=== PATIENT | female | born 1950 | race Caucasian/White ===

== ENCOUNTER 2017-07-27 16:18 | Emergency (ER) | payer MEDICARE ==
[2017-07-27 16:37] VITALS: BP 126/71
--- NOTE | 2017-07-27 16:38 | UC ---
Complaint Female HPI - HPI Summary HPI Summary: 67 YEAR OLD FEMALE PRESENTS WITH COMPLAINS OF URINARY FREQUENCY, URGENCY AND BURNING. - History Of Current Complaint Chief Complaint: UCGU Stated Complaint: UTI Time Seen by Provider: 07/27/17 16:38 Hx Obtained From: Patient Onset/Duration: Sudden Onset Timing: Constant Severity Initially: Moderate Severity Currently: Moderate Pain Scale Used: 0-10 Numeric - 5 Character: Sharp, Burning Aggravating Factor(s): Movement, Urination Associated Signs And Symptoms: Positive: Negative - Allergies/Home Medications Allergies/Adverse Reactions: Allergies Allergy/AdvReac Type Severity Reaction Status Date / Time Erythromycin Allergy Vomiting Verified 07/27/17 16:31 Sulfa Antibiotics Allergy Hives Verified 07/27/17 16:31 PMH/Surg Hx/FS Hx/Imm Hx Previously Healthy: Yes - Surgical History Surgical History: None - Family History Known Family History: Positive: Hypertension - Social History Alcohol Use: Occasionally Substance Use Type: None Smoking Status (MU): Never Smoked Tobacco Review of Systems Constitutional: Negative Skin: Negative Eyes: Negative ENT: Negative Respiratory: Negative Cardiovascular: Negative Gastrointestinal: Negative Genitourinary: Dysuria, Frequency, Urgency Motor: Negative Neurovascular: Negative Musculoskeletal: Negative Neurological: Negative Psychological: Negative All Other Systems Reviewed And Are Negative: Yes Physical Exam Triage Information Reviewed: Yes Vital Signs: Initial Vital Signs Temp 36.5 C 07/27/17 16:32 Pulse 75 07/27/17 16:32 Resp 15 07/27/17 16:32 BP 126/71 07/27/17 16:32 Pulse Ox 100 07/27/17 16:32 Eye Exam: Normal ENT Exam: Normal Dental Exam: Normal Neck exam: Normal Neck: Positive: 1 Respiratory Exam: Normal Cardiovascular Exam: Normal Abdominal Exam: Normal Musculoskeletal Exam: Normal Neurological Exam: Normal Psychological Exam: Normal Skin Exam: Normal Complaint Female Dx - Differential Dx/Diagnosis Provider Diagnoses: URINARY FREQUENCY/BURNING Discharge - Discharge Plan Condition: Stable Disposition: HOME Prescriptions: Nitrofurantoin Monohyd Macro [Macrobid] 100 mg PO BID #14 cap Phenazopyridine 200 mg (NF) [Pyridium 200 MG tab *] 200 mg PO TID #9 tab Patient Education Materials: Urinary Tract Infection in Women (ED) Referrals: Anni Garcia MD [Primary Care Provider] -
== END 2017-07-27 17:01 | disposition home or self-care (01) ==
LOC: UCEAST 16:18
DX: R35.0 Frequency of micturition (principal); R30.0 Dysuria; Z88.1 Allergy status to other antibiotic agents
CPT/HCPCS: 81003; 87077; 87086; 87186; 99212; G0463

== ENCOUNTER 2017-08-06 13:31 | Emergency (ER) | payer MEDICARE ==
[2017-08-06 13:39] VITALS: BP 116/71
--- NOTE | 2017-08-06 14:08 | UC ---
Lower Extremity/Ankle HPI - History of Current Complaint Chief Complaint: UCLowerExtremity Stated Complaint: FOOT INJURY Time Seen by Provider: 08/06/17 13:43 Hx Obtained From: Patient Onset/Duration: Sudden Onset - pt twisted L foot over while walking and now has L lateral foot pain and swelling Severity Initially: Severe Severity Currently: Moderate Aggravating Factor(s): Standing, Ambulation Alleviating Factor(s): Rest, Elevation, Ice Able to Bear Weight: No - Allergies/Home Medications Allergies/Adverse Reactions: Allergies Allergy/AdvReac Type Severity Reaction Status Date / Time Erythromycin Allergy Vomiting Verified 08/06/17 13:38 Sulfa Antibiotics Allergy Hives Verified 08/06/17 13:38 Home Medications: Home Medications Ibuprofen [Advil] 2 tab PO Q8HR PRN 08/06/17 [History Confirmed 08/06/17] PMH/Surg Hx/FS Hx/Imm Hx Previously Healthy: Yes - Surgical History Surgical History: None - Family History Known Family History: Positive: Hypertension - Social History Occupation: Retired Lives: With Family Alcohol Use: Occasionally Alcohol Amount: 1 glass of wine per day Substance Use Type: None Smoking Status (MU): Never Smoked Tobacco Review of Systems Constitutional: Negative Skin: Negative Respiratory: Negative Cardiovascular: Negative Musculoskeletal: Other: - L foot pain Neurological: Negative Psychological: Negative All Other Systems Reviewed And Are Negative: Yes Physical Exam Triage Information Reviewed: Yes Appearance: Well-Appearing, No Pain Distress, Well-Nourished Vital Signs: Initial Vital Signs Temp 97.7 F 08/06/17 13:34 Pulse 72 08/06/17 13:34 Resp 18 08/06/17 13:34 BP 116/71 08/06/17 13:34 Pulse Ox 100 08/06/17 13:34 Vital Signs Reviewed: Yes Respiratory Exam: Normal Cardiovascular Exam: Normal Cardiovascular: Positive: RRR, Brisk Capillary Refill Musculoskeletal: Positive: Other: - swelling and point tenderness L lat foot. no knee or hip pain Neurological Exam: Normal Psychological Exam: Normal Skin Exam: Normal Lower Extremity Course/Dx - Differential Dx/Diagnosis Differential Diagnosis/HQI/PQRI: Contusion, Fracture (Closed), Sprain, Strain Provider Diagnoses: fractured L fifth metatarsal Discharge - Discharge Plan Condition: Stable Disposition: HOME Patient Education Materials: Foot Fracture in Adults (ED), Crutch Instructions (ED) Referrals: Anni Garcia MD [Primary Care Provider] - Kim Jo MD [Medical Doctor] - 2 Days (Call Tuesday for appointment with ortho) Additional Instructions: Ice and elevate foot. Wear CAM boot until you follow-up with orthopedics Use crutches Ibuprofen 600-800mg every 6 hours as needed for pain
--- NOTE | 2017-08-06 14:18 | RAD ---
Indication: LEFT foot pain post fall. Comparison: No relevant prior exams available on the [facility] for comparison. Technique: AP, lateral, and oblique views LEFT foot. Report: Bone density appears decreased corresponding with osteopenia on March 23, 2016 DEXA scan. Nondisplaced transverse fracture at the base of the fifth metatarsal most conspicuously lateral views centered 1.4 cm distal to the proximal margin of the tuberosity. Negative for additional fracture. Normal articular alignment. Unremarkable soft tissue contours. IMPRESSION: Nondisplaced transverse fracture at the proximal metaphysis of the fifth metatarsal.
== END 2017-08-06 14:20 | disposition home or self-care (01) ==
LOC: UCEAST 13:31
DX: S92.352A Displaced fracture of fifth metatarsal bone, left foot, initial encounter for closed fracture (principal); Z88.2 Allergy status to sulfonamides; X50.1XXA Overexertion from prolonged static or awkward postures, initial encounter; Y92.9 Unspecified place or not applicable
CPT/HCPCS: 99213; G0463

== ENCOUNTER 2017-08-17 09:23 | Day surgery (SDC) | payer MEDICARE ==
[~2017-08-17 09:23] MED LIST: Buffered Lidocaine 0.9% SYRIN* 5 ML/SYR SYRINGE INTRADERM ONE; Ibuprofen TAB* 600 MG PO ONE; Sodium Citrate/Citric Acid* 15 ML UDC PO ONE
[2017-08-17] MEDS ORDERED: Sodium Citrate/Citric Acid* 15 ML UDC ONE (09:37)
[2017-08-17] MEDS ORDERED: ceFAZolin 2 GM PREMIX (*) 50 ML IVPB ONE (09:37)
[2017-08-17] MEDS ORDERED: Buffered Lidocaine 0.9% SYRIN* 5 ML/SYR SYRINGE ONE (09:37)
[2017-08-17] MEDS ORDERED: Ibuprofen TAB* 600 MG ONE (09:37)
[2017-08-17] MEDS ORDERED: Midazolam* 1 MG/ML 2 ML VIAL (2 MG) ONE ×2 (12:49→13:56)
[2017-08-17] MEDS ORDERED: fentaNYL* 50 MCG/ML 2 ML VIAL (100 MCG VIAL) ONE ×2 (12:49→13:55)
[2017-08-17] MEDS ORDERED: Chloroprocaine 2%* 20 ML VIAL ONE (12:49)
[2017-08-17] MEDS ORDERED: Ketorolac INJ* 30 MG/ML 1 ML VIAL ONE (13:10)
[2017-08-17] MEDS ORDERED: oxyCODONE/Acetamin 5/325 MG* TAB PO PRN (13:15)
[2017-08-17] MEDS ORDERED: Ondansetron INJ* 2 MG/ML VIAL IV PRN (13:15)
[2017-08-17] MEDS ORDERED: DiMENhydriNATE IV* 50 MG/ML VIAL IV PUSH PRN (13:15)
[2017-08-17] MEDS ORDERED: fentaNYL* 50 MCG/ML 2 ML VIAL (100 MCG VIAL) IV PRN (13:15)
[2017-08-17] MEDS ORDERED: Lidocaine 1.5% EPI 1:200,000* 30 ML SDV ONE (14:00)
[2017-08-17] MEDS ORDERED: Ondansetron INJ* 2 MG/ML VIAL ONE (14:59)
[2017-08-17 16:30] VITALS: BP 123/66
--- NOTE | 2017-08-17 17:26 | RAD ---
CPT II Codes: 6045F INDICATION: Nondisplaced left fifth metatarsal fracture TECHNIQUE: Intraoperative fluoroscopy was provided during ORIF of left fifth metatarsal fracture. FINDINGS: 6 spot films depict intramedullary screw fixation across the patient's nondisplaced proximal left fifth metatarsal fracture. Fluoroscopy time: 228.5 seconds IMPRESSION: As above.
--- NOTE | 2017-08-18 06:19 | OP ---
DATE OF OPERATION: 08/17/17 [facility] DATE OF : 54 SURGEON: Rickey Gauthier MD. ACCOUNTING METHODS ANALYST: MAXWELL Ladd. Positioning and leg manipulation provided by physician integration assistant, required through the entire length of the procedure. ANESTHESIOLOGIST: Tevin Espinoza MD. ANESTHESIA: Spinal anesthesia, local anesthesia, 5 mL of 1.5% lidocaine with epinephrine. PRE-OP DIAGNOSIS: Left 5th metatarsal fracture, base, nondisplaced. POST-OP DIAGNOSIS: Left 5th metatarsal fracture, base, nondisplaced. OPERATIVE PROCEDURE: Open reduction and internal fixation, left 5th metatarsal fracture, base. ANTIBIOTICS: Ancef 2 g IV. IV FLUIDS: 1800 cc crystalloid. TOURNIQUET TIME: 46 minutes at 300 mmHg. COMPLICATIONS: None. ESTIMATED BLOOD LOSS: Minimal. SPECIMENS: None. IMPLANTS: Arthrex noncannulated, partially threaded 5.5 mm screw, length 40 mm , from the Haji fracture set. INDICATIONS FOR PROCEDURE: The patient is a 67-year-old woman, who injured herself on 08/06/17, while walking in clogs on the street. She suddenly inverted her left foot and ankle walking over some rocks. She went to [facility] where the diagnosis was made by radiograph and the patient followed up with me in clinic. The patient and I discussed at length the management of Haji type 2 metatarsal base fractures. We discussed the benefits, risks, and potential complications of both nonoperative and operative treatment. Ultimately, the patient decided she preferred operative treatment because of its lower rate of nonunion and faster rate of average healing. I discussed risk and potential complications of surgery, including bleeding, infection, nerve or blood vessel injury, blood clots, hardware problem, nonunion , foot pain. DESCRIPTION OF PROCEDURE: Preoperative written consent was signed. Operative extremity was marked in the preoperative holding. The short leg cast had been placed in clinic, was removed after having been bivalved. The patient's skin about the lateral foot was intact, although there was some soft tissue swelling and bruising. No skin compromise whatsoever. The patient was taken back to the operating room where Dr. Espinoza performed a spinal anesthetic. The patient was positioned supine on the table. A blanket bump was placed under the left hemipelvis. A tourniquet was placed on the left proximal thigh, but not yet inflated. The left foot and ankle were prepped with chlorhexidine. Then, the left lower extremity was prepped with ChloraPrep. The left lower extremity was draped. Time-out was performed, surgical. I brought in the mini C-arm and marked on the skin the level, proximal to distal , of the proximal most end of the 5th metatarsal. I next delineated by palpation the medial and lateral borders of the metatarsal. I marked the skin 2.3 cm proximal to the proximal tip of the 5th metatarsal. I applied an Esmarch and elevated the tourniquet to 300 mmHg. I made an approximately 1 cm longitudinal incision at that skin marking, 2.3 cm proximal to the base of the 5th metatarsal. I then spread down to bone with a hemostat. No nerve branches were encountered. I then used a pin from the Arthrex Haji fracture set. I placed a pin down the medullary canal of the 5th metatarsal. I liked my placement on the second pass of the pin. It entered the bone in appropriate location and was nicely centralized in the medullary canal. I took operative photos with a mini C-arm and saved them. Next, I placed a tissue protector over the pin. I drilled with a 3.5 mm drill, on hand power. No resistance was encountered of significance. I next used a 4.5 mm tap by hand. No significant resistance was encountered. I took multiple images with this tap in place. While it looked like it filled up most of the canal width, especially in the AP images, it looked as though there was some space, especially on the lateral view images, and I wanted to get better purchase on the underside of the cortex. Certainly, the patient's bone appeared osteopenic and I worried about fracturing the bone, so I took multiple images with the tap overlying the skin to determine if a 5.5 mm tap would enter into bone. Ultimately, I decided to use the 5.5 mm tap. I next the tapped the bone by hand with a 5.5 mm tap, significant resistance was not encountered and there was room in the intramedullary canal for this tap. This legitimized my thinking. I placed several screw lengths up against the bone, outside the body, to pick a screw length and ultimately decided on a 40 mm screw. We removed other instruments and then placed my 40 mm long, 5.5 mm diameter screw, partially threaded. A nice resistance was encountered. I counter sunk the head slightly so that it would not interfere with the joint between the cuboid and the 5th metatarsal. Final images were taken. Irrigation of wound. I placed 2 stitches with nylon 4.0 suture in the skin of the incision site. Tourniquet was dropped. Xeroform, 4x4s, sterile Webril. Posterior splint followed by sugar tong were placed and wrapped with an Gabe bandage. After closure of the skin and before Xeroform placement, a local anesthetic, approximately 5 mL of lidocaine 1.5% with epinephrine was placed. The patient was transferred back to the PACU. The patient will receive Percocet for pain control postoperatively. Aspirin 81 mg p.o. b.i.d. x2 weeks for DVT prophylaxis and Keflex x5 days for infection prophylaxis. I chose aspirin 81 rather than 325 because she states that she has had some gastric upset with full strength aspirin in the past. I will see the patient at 10 to 14 days postoperative in clinic where I will remove the splint, do a wound check , and get x- rays. At that time, I will place the patient in a boot or a cast. [id number]/CPS #: [id number] MTDAlex
== END 2017-08-17 16:35 | disposition home or self-care (01) ==
LOC: OR 09:23
PROVIDERS: ATTEND Orthopaedic Surgery
DX: S92.355A Nondisplaced fracture of fifth metatarsal bone, left foot, initial encounter for closed fracture (principal); X50.0XXA Overexertion from strenuous movement or load, initial encounter; Y92.410 Unspecified street and highway as the place of occurrence of the external cause
CPT/HCPCS: A9270-GY; C1713; J0690; J1885; J2250; J2400; J2405; J3010

== ENCOUNTER 2017-09-26 07:47 | Emergency (ER) | payer MEDICARE ==
[2017-09-26 07:56] VITALS: BP 126/87
[2017-09-26] MEDS ORDERED: Phenazopyridine TAB* 100 MG PO ONE (08:47)
--- NOTE | 2017-09-26 08:52 | UC ---
Emerita Velasco Thomas, scribed for Saundra Elizalde MD on 09/26/17 at 0839 . Complaint Female HPI - HPI Summary HPI Summary: The pt is a 67 y/o F presenting to Urgent Care c/o dysuria, urinary frequency, and urinary urgency that began last night but worsened this morning. The pain is described as pressure. The pain is rated 6/10. The pain is aggravated by voiding and is alleviated by nothing. The patient has treated the pain with nothing STEEL UNLOADER. Pt denies fevers, chills, N/V, back pain, abd pain, and hematuria. Patient notes two prior UTIs earlier this year. Her last UTI was two months ago. Prior documentation reviewed from her visit to [facility] two months ago. Patients medication reviewed this visit. - History Of Current Complaint Chief Complaint: UCGU Stated Complaint: BURNING URINATION Time Seen by Provider: 09/26/17 08:23 Hx Obtained From: Patient, Medical Records - review of recent culture and sensitivity Onset/Duration: Lasting Days - 1, Still Present, Worse Since - this morning Timing: Constant Severity Currently: Moderate Pain Intensity: 6 Pain Scale Used: 0-10 Numeric Aggravating Factor(s): Urination Alleviating Factor(s): Nothing Associated Signs And Symptoms: Negative: Fever, Back Pain, Nausea, Vomiting(# Of Episodes =) Related Hx: Similar Episode/Dx as: - two prior UTI's this year - Allergies/Home Medications Allergies/Adverse Reactions: Allergies Allergy/AdvReac Type Severity Reaction Status Date / Time Erythromycin Allergy Severe Vomiting Verified 09/26/17 07:56 Fish Allergy Allergy Severe Diarrhea Verified 09/26/17 07:56 Sulfa Antibiotics Allergy Severe Hives Verified 09/26/17 07:56 Lactose Intolerance (GI) Allergy Intermediate Diarrhea Verified 09/26/17 07:56 Home Medications: Home Medications Cetirizine HCl [Zyrtec Allergy 10 MG TAB] 1 tab PO DAILY 09/26/17 [History Confirmed 09/26/17] PMH/Surg Hx/FS Hx/Imm Hx Previously Healthy: No - UTI's; NEGATIVE: HTN, DM - Surgical History Surgical History: Yes Surgery Procedure, Year, and Place: Leflt foot fracture - Family History Known Family History: Positive: Hypertension - Social History Occupation: Retired Lives: With Family Alcohol Use: Occasionally Alcohol Amount: 1 glass of wine per day Substance Use Type: None Smoking Status (MU): Never Smoked Tobacco - Immunization History Most Recent Influenza Vaccination: 07/31 Review of Systems Constitutional: Other - NEGATIVE: fever Genitourinary: Dysuria, Frequency, Urgency, Vaginal/Penile Discharge Is Patient Immunocompromised?: No All Other Systems Reviewed And Are Negative: Yes Physical Exam Triage Information Reviewed: Yes Appearance: Well-Appearing, No Pain Distress, Well-Nourished Vital Signs: Initial Vital Signs Temp 98.4 F 09/26/17 07:53 Pulse 80 09/26/17 07:53 Resp 16 09/26/17 07:53 BP 126/87 09/26/17 07:53 Pulse Ox 99 09/26/17 07:53 Vital Signs Reviewed: Yes Eye Exam: Normal ENT: Positive: Hearing grossly normal, Pharynx normal Neck exam: Normal Neck: Positive: Supple, Nontender, No Lymphadenopathy Respiratory Exam: Normal Respiratory: Positive: Chest non-tender, Lungs clear, Normal breath sounds, No respiratory distress, No accessory muscle use Cardiovascular Exam: Normal Cardiovascular: Positive: RRR, No Murmur, Pulses Normal Abdominal Exam: Normal Abdomen Description: Positive: Nontender, No Organomegaly, Soft. Negative: CVA Tenderness (R), CVA Tenderness (L), Guarding Musculoskeletal Exam: Normal Neurological Exam: Normal Psychological Exam: Normal Skin Exam: Normal Complaint Female Dx - Course Course Of Treatment: The pt is a 67 y/o female complaining of dysuria, urinary frequency, and urinary urgency that began last night but worsened this morning. Macrobid. pyridium. hydrate. uc - Differential Dx/Diagnosis Provider Diagnoses: UTI Discharge - Discharge Plan Condition: Stable Disposition: HOME Prescriptions: Nitrofurantoin Monohyd Macro [Macrobid] 100 mg PO BID #14 cap Phenazopyridine 200 mg (NF) [Pyridium 200 MG tab *] 200 mg PO TID PRN #6 tab PRN Reason: dysuria Patient Education Materials: Urinary Tract Infection in Women (ED) Referrals: Anni Garcia MD [Primary Care Provider] - Additional Instructions: - stay well hydrated. Drink plenty of non-alcoholic, non-caffinated beverages - Take antibiotic as prescribed until gone. - your urine has been sent for additional testing. If you need a different antibiotic - you will receive a call from a member of your care team - Take pyridium as prescribed for discomfort. This will make your urine blaze orange - this is normal - Okay to alternate ibuprofen (Advil, motrin) and tylenol every 3 hours for pain. Take with food Call your doctor or return with questions or concerns The documentation as recorded by the Emerita oliveira Thomas accurately reflects the service I personally performed and the decisions made by me, Saundra Elizalde MD.
== END 2017-09-26 09:00 | disposition home or self-care (01) ==
LOC: UCEAST 07:47
DX: N39.0 Urinary tract infection, site not specified (principal); Z88.1 Allergy status to other antibiotic agents; Z88.2 Allergy status to sulfonamides
CPT/HCPCS: 81003; 87077; 87086; 87186; 99212; A9270-GY; G0463

== ENCOUNTER 2019-08-05 17:25 | Emergency (ER) | payer MEDICARE ==
[2019-08-05] MEDS ORDERED: Ondansetron ODT TAB* 4 MG PO ONE (17:30)
--- NOTE | 2019-08-05 17:32 | UC ---
Abdominal Pain Female HPI - HPI Summary HPI Summary: 6 hours of worsening abdomen pain, nausea/vomiting belching no diarrhea-- history of ibs and has never had pain like this before - History of Current Complaint Chief Complaint: UCAbdominalPain Stated Complaint: VOMITING, CRAMPS Time Seen by Provider: 08/05/19 17:29 Hx Obtained From: Patient ?: No Onset/Duration: Sudden Onset, Lasting Hours - 6 Timing: Constant Severity Initially: Moderate Severity Currently: Severe Location: Diffuse Radiates: No Character: Colicy, Cramping Aggravating Factor(s): Movement Alleviating Factor(s): Nothing Associated Signs and Symptoms: Positive: Decreased Appetite, Nausea, Vomiting Allergies/Adverse Reactions: Allergies Allergy/AdvReac Type Severity Reaction Status Date / Time MS Erythromycin Allergy Severe Vomiting Verified 09/26/17 07:56 [Erythromycin] MS Fish Allergy Allergy Severe Diarrhea Verified 09/26/17 07:56 [Fish Allergy] MS Sulfa Antibiotics Allergy Severe Hives Verified 09/26/17 07:56 [Sulfa Antibiotics] MS Lactose Intolerance (GI) Allergy Intermediate Diarrhea Verified 09/26/17 07: 56 [Lactose Intolerance (GI)] PMH/Surg Hx/FS Hx/Imm Hx Previously Healthy: Yes - Surgical History Surgical History: Yes Surgery Procedure, Year, and Place: Leflt foot fracture - Family History Known Family History: Positive: Hypertension - Social History Occupation: Retired Lives: With Family Alcohol Use: Occasionally Alcohol Amount: 1 glass of wine per day Substance Use Type: None Smoking Status (MU): Never Smoked Tobacco - Immunization History Most Recent Influenza Vaccination: 07/31 Review of Systems All Other Systems Reviewed And Are Negative: Yes Constitutional: Positive: Negative Skin: Positive: Negative Eyes: Positive: Negative ENT: Positive: Negative Respiratory: Positive: Negative Cardiovascular: Positive: Negative Gastrointestinal: Positive: Abdominal Pain, Vomiting, Nausea Genitourinary: Positive: Negative Motor: Positive: Negative Neurovascular: Positive: Negative Musculoskeletal: Positive: Negative Neurological: Positive: Negative Psychological: Positive: Negative Is Patient Immunocompromised?: No Physical Exam Triage Information Reviewed: Yes Appearance: Well-Nourished, Ill-Appearing, Pain Distress Vital Signs Reviewed: Yes Eye Exam: Normal Eyes: Positive: Conjunctiva Clear ENT Exam: Normal ENT: Positive: Normal ENT inspection, Hearing grossly normal, Pharynx normal. Negative: Trismus, Muffled voice, Hoarse voice Dental Exam: Normal Neck exam: Normal Neck: Positive: Supple, Nontender Respiratory Exam: Normal Respiratory: Positive: Chest non-tender, Lungs clear, Normal breath sounds, No respiratory distress, No accessory muscle use Cardiovascular Exam: Normal Cardiovascular: Positive: RRR, No Murmur, Pulses Normal, Brisk Capillary Refill Abdominal Exam: Other Abdomen Description: Positive: Distended, Guarding. Negative: CVA Tenderness (R ), CVA Tenderness (L), McBurney's Point Tenderness Bowel Sounds: Positive: Present Musculoskeletal Exam: Normal Musculoskeletal: Positive: Strength Intact, ROM Intact Neurological Exam: Normal Neurological: Positive: Alert, Muscle Tone Normal Psychological Exam: Normal Skin Exam: Normal Abd Pain Female Course/Dx - Course Course Of Treatment: npo zofran given, refused [place] [facility] [place] [place] - Differential Dx/Diagnosis Provider Diagnosis: Pain in the abdomen Discharge ED - Sign-Out/Discharge Documenting (check all that apply): Patient Departure All imaging exams completed and their final reports reviewed: No Studies - Discharge Plan Condition: Stable Disposition: HOME-RECOMMEND TO ED Patient Education Materials: Acute Abdominal Pain (ED) Referrals: Anni Garcia MD [Primary Care Provider] - Additional Instructions: please go directly to emergency department for further care-nothing to eat or drink - Billing Disposition and Condition Condition: STABLE Disposition: Home-Recommend to ED
[2019-08-05 17:36] VITALS: BP 140/72
== END 2019-08-05 17:51 | disposition home health service (06) ==
LOC: UCEAST 17:25
DX: R10.9 Unspecified abdominal pain (principal); Z88.2 Allergy status to sulfonamides
CPT/HCPCS: 99212; A9270-GY; G0463

== ENCOUNTER 2019-08-05 17:59 | Emergency (ER) | payer MEDICARE ==
[2019-08-05] MEDS ORDERED: Morphine INJ* 2 MG/ML 1 ML SYRINGE (TWO MG - NEW SYRINGE VERSION) IV ONE (19:11)
[2019-08-05] MEDS ORDERED: NS 0.9% 1000 ML** 1,000 ML IV ONE (19:11)
--- NOTE | 2019-08-05 19:36 | ED ---
GI/ HPI - HPI Summary HPI Summary: 69-year-old female presents with abdominal pain for the past day. She states she's been having nausea and vomiting. No diarrhea. Had normal bowel movement today. She had no previous belly surgery. States it felt like gas pain but is more intense. States her symptoms have getting any better and then worse. She denies taking anything for pain. She was seen in urgent care and given nausea medications and the nausea improved. Denies any chest pressure or shortness of breath. No fevers. No urinary symptoms. Never had this pain before. Denies anything different. - History of Current Complaint Chief Complaint: EDAbdPain Time Seen by Provider: 08/05/19 19:02 Stated Complaint: ABD PAIN PER Hx Last Menstrual Period: post Pain Intensity: 7 - Allergy/Home Medications Allergies/Adverse Reactions: Allergies Allergy/AdvReac Type Severity Reaction Status Date / Time MS Erythromycin Allergy Severe Vomiting Verified 08/05/19 19:15 [Erythromycin] MS Fish Allergy Allergy Severe Diarrhea Verified 08/05/19 19:15 [Fish Allergy] MS Sulfa Antibiotics Allergy Severe Hives Verified 08/05/19 19:15 [Sulfa Antibiotics] MS Lactose Intolerance (GI) Allergy Intermediate Diarrhea Verified 08/05/19 19: 15 [Lactose Intolerance (GI)] PMH/Surg Hx/FS Hx/Imm Hx Endocrine/Hematology History: Denies: Hx Diabetes, Hx Thyroid Disease Cardiovascular History: Denies: Hx Hypertension Respiratory History: Denies: Hx Asthma, Hx Chronic Obstructive Pulmonary Disease (COPD) GI History: Reports: Hx Irritable Bowel - diarrhea Denies: Hx Ulcer History: Reports: Hx Renal Disease - abnormal gfr Musculoskeletal History: Reports: Hx Tendonitis - right ring finger Sensory History: Reports: Hx Contacts or Glasses - reading Denies: Hx Cataracts, Hx Hearing Aid Opthamlomology History: Reports: Hx Contacts or Glasses - reading Denies: Hx Cataracts Neurological History: Reports: Hx Migraine - Cancer History Hx Chemotherapy: No Hx Radiation Therapy: No - Surgical History Surgery Procedure, Year, and Place: Leflt foot fracture Infectious Disease History: No Infectious Disease History: Denies: Hx Clostridium Difficile, Hx Hepatitis, Hx Human Immunodeficiency Virus (HIV), Hx of Known/Suspected MRSA, Hx Shingles, Hx Tuberculosis, Hx Known/ Suspected VRE, Hx Known/Suspected VRSA, History Other Infectious Disease, Traveled Outside the [place] in Last 30 Days - Family History Known Family History: Positive: Hypertension - Social History Alcohol Use: Occasionally Alcohol Amount: 1 glass of wine per day Substance Use Type: Reports: None Smoking Status (MU): Never Smoked Tobacco Review of Systems Negative: Fever Negative: Chest Pain Negative: Shortness Of Breath Positive: Abdominal Pain, Vomiting, Nausea. Negative: Diarrhea All Other Systems Reviewed And Are Negative: Yes Physical Exam Triage Information Reviewed: Yes Vital Signs On Initial Exam: Initial Vitals Temp Pulse Resp BP Pulse Ox 97.9 F 70 14 144/76 99 08/05/19 18:01 08/05/19 18:01 08/05/19 18:01 08/05/19 18:01 08/05/19 18:01 Vital Signs Reviewed: Yes Appearance: Positive: Well-Appearing Skin: Positive: Warm, Dry Head/Face: Positive: Normal Head/Face Inspection Eyes: Positive: Normal, EOMI, AMARA, Conjunctiva Clear ENT: Positive: Normal ENT inspection, Pharynx normal, TMs normal Respiratory/Lung Sounds: Positive: Clear to Auscultation, Breath Sounds Present Cardiovascular: Positive: Normal, RRR Abdomen Description: Positive: Soft, Other: - tenderness periumbilical Bowel Sounds: Positive: Present Musculoskeletal: Positive: Normal Neurological: Positive: Normal Psychiatric: Positive: Normal Diagnostics - Vital Signs Vital Signs Temp Pulse Resp BP Pulse Ox 08/05/19 18:01 97.9 F 70 14 144/76 99 - Laboratory Result Diagrams: 08/05/19 20:17 08/05/19 20:17 Lab Statement: Any lab studies that have been ordered have been reviewed, and results considered in the medical decision making process. - Ultrasound No standard instances Ultrasound Interpretation Completed By: Radiologist Summary of Ultrasound Findings: IMPRESSION: No evidence of gallstones or other acute process. Right renal lower pole simple cyst. Re-Evaluation - Re-Evaluation First Eval Re-Evaluation Time: 20:52 Change: Improved Comment: pain resolved GIGU Course/Dx - Course Course Of Treatment: 69-year-old female presents with abdominal pain for the past day. She states she's been having nausea and vomiting. No diarrhea. Had normal bowel movement today. She had no previous belly surgery. States it felt like gas pain but is more intense. States her symptoms have getting any better and then worse. She denies taking anything for pain. She was seen in urgent care and given nausea medications and the nausea improved. Denies any chest pressure or shortness of breath. No fevers. No urinary symptoms. Never had this pain before. Denies anything different. On exam tenderness periumbilically. gallbladder u/s neg. wbc normal. crp normal. patient pain resolved without any pain medication. told if symptoms return can come back. patient understand and agrees with plan. - Diagnoses Differential Diagnoses - Female: Cholelithiasis, Cholecystitis, Gastroenteritis (Viral), Urinary Tract Infection Provider Diagnoses: Abdominal pain Discharge ED - Sign-Out/Discharge Documenting (check all that apply): Patient Departure Patient Received Moderate/Deep Sedation with Procedure: No - Discharge Plan Condition: Good Disposition: HOME Patient Education Materials: Acute Abdominal Pain (ED) Referrals: Anni Garcia MD [Primary Care Provider] - Additional Instructions: take tyenlol every 6 hours for pain follow up with primary Return to ED if develop any new or worsening symptoms - Billing Disposition and Condition Condition: GOOD Disposition: Home
[2019-08-05 20:24] LABS: ABS Lymphocytes 0.6 10^3/ul (1.0-4.8); ABS Monocytes 0.2 10^3/ul (0-0.8); Eosinophil % 0.1 %; Hematocrit 38 % (35-47); Hemoglobin 12.9 g/dL (12.0-16.0); Lymphocyte % 7.2 %; Mean Corpuscular HGB Conc 34 g/dL (31-36); Mean Corpuscular Hemoglobin 32 pg (27-31); Mean Corpuscular Volume 92 fL (80-97); Mean Platelet Volume 7.5 fL (7.4-10.4); Platelet Count 241 10^3/uL (150-450); Red Blood Count 4.07 10^6 /uL (3.70-4.87); Red Cell Distribution Width 12 % (10-15); White Blood Count 8.9 10^3/uL (3.5-10.8)
[2019-08-05 20:41] LABS: Albumin 3.9 g/dL (3.2-5.2); Albumin/Globulin Ratio 1.6 (1-3); BUN/Creatinine Ratio 25.3 (8-20); C Reactive Protein 2.81 mg/L (<8.01); Calcium 8.9 mg/dL (8.6-10.3); EGFR Non-African American 68.6 (>60); Globulin 2.5 g/dL (2-4); Total Bilirubin 0.5 mg/dL (0.2-1.0); Total Protein 6.4 g/dL (6.4-8.9)
[2019-08-05 21:20] VITALS: BP 124/78
== END 2019-08-05 21:19 | disposition home or self-care (01) ==
LOC: ED 17:59
DX: R10.9 Unspecified abdominal pain (principal); R11.2 Nausea with vomiting, unspecified; M77.9 Enthesopathy, unspecified; Z88.2 Allergy status to sulfonamides
CPT/HCPCS: 36415; 76705; 80053; 83605; 83690; 85025; 86140; 99282; J2270